=== PATIENT | female | born 1965 | race Hispanic/Latino ===

== ENCOUNTER 2022-11-17 19:10 | Emergency (ER) | payer OTHER ==
[2022-11-17] MEDS ORDERED: HYDROcodone/Acetaminophen 5/325 mg Tablet ONE (20:07)
[2022-11-17] MEDS ORDERED: Ibuprofen 200 MG TAB ONE (20:08)
== END 2022-11-17 20:27 | disposition home or self-care (01) ==
LOC: CSHERS 19:10
DX: S13.4XXA Sprain of ligaments of cervical spine, initial encounter (principal); M79.18 Myalgia, other site; E03.9 Hypothyroidism, unspecified; V89.2XXA Person injured in unspecified motor-vehicle accident, traffic, initial encounter
CPT/HCPCS: 99283